=== PATIENT | female | born 1985 | race Caucasian/White ===

== ENCOUNTER 2018-11-06 13:39 | Emergency (ER) | payer BC ==
--- NOTE | 2018-11-06 13:42 | PDOC ---
Attending Attestation - Resident Resident Name: Desmond Law - ED Attending Attestation I have performed the following: I have examined & evaluated the patient, The case was reviewed & discussed with the resident, I agree w/resident's findings & plan, Exceptions are as noted - HPI HPI: 11/06/18 16:23 33yo female with lbp and intermittent R flank pain. Pt had an episode at the end of last week, which resolved on its own. Pt denies dysuria. Last night pain returned, felt like a spasm in low back - similar to her kidney stones in the past. Pt denies hematuria. Next menstrual cycle is next week. Pt states last night was assoc with nausea - no vomiting. No diarrhea. No other sick contacts. No f/c. No cp/sob. No rhinorrhea or sore throat. Pt states last kidney stone was in 2006- non surgical, passed on its own. Pt states she also started a workout program in the last week. - Physicial Exam PE: 11/06/18 17:16 Gen: aaox3, nad heent: eomi, mmm heart: +s1s2 reg lungs: cta b/l abd: soft, mild RUQ ttp, no rebound or guarding, neg murphys, neg mcburneys, no cva ttp ext: no c/c/e - Medical Decision Making 11/06/18 13:42 I, Dr. Teresa Lee, DO, attest that this document has been prepared under my direction and personally reviewed by me in its entirety. I further attest, that it accurately reflects all work, treatment, procedures and medical decision -making performed by me. 11/06/18 16:19 a/p: 33yo female with R flank pain -nausea last night, no vomiting -no cva ttp, no fever, no diarrhea, no anorexia -mild RUQ ttp, no rebound or guarding, neg murphys -will send labs, renal ultrasound/gallbladder ultrasound -pt with hx of renal stones- pain feels similar -will monitor and reassess 11/06/18 17:10 renal ultrasound and RUQ ultrasound negative fora cute findings labs show normal wbc, normal renal function, small wbc and bacteria in the urine 11/06/18 17:17 urine is not a clean sample- will repeat labs reviewed pain improved 11/06/18 18:11 repeat urine improved pt feels better resident discussed mild blood in urine and poss of small nonobstructing stone resident discussed straining urine and urology followup pt agrees with the plan and is stable for dc to home
[2018-11-06 13:54] VITALS: BP 124/74; PULSE 85; TEMP 98.3; BMI 26.4
[2018-11-06 14:00] LABS: HCG,QUALITATIVE URINE Negative
[2018-11-06 14:03] LABS: PH,URINE 5.5 (4.5-8); URINE APPEARANCE Clear; URINE BILIRUBIN Negative (NEGATIVE); URINE COLOR Yellow; URINE GLUCOSE (UA) Negative (NEGATIVE); URINE KETONE Negative (NEGATIVE); URINE LEUK ESTERASE 1+ (NEGATIVE); URINE NITRITE Negative (NEGATIVE); URINE PROTEIN Negative (NEGATIVE); URINE UROBILINOGEN 0.2 (0.2-1.0)
--- NOTE | 2018-11-06 14:35 | PDOC ---
History of Present Illness - General Chief Complaint: Pain Stated Complaint: RIGHT FLANK PAIN Time Seen by Provider: 11/06/18 13:42 History Source: Patient Exam Limitations: No Limitations - History of Present Illness Initial Comments: HPI: 33 y/o female presenting to ER complaining of right sided abdominal, right flank, and bilateral lower back pain. Mild occurrence last that resolved spontaneously. Pain returned last evening while she was laying down to sleep. Unable to identify eliciting event, but states she recently restarted gym exercise. Endorses nausea without vomiting. Able to tolerate PO well. Denies dysuria, hematuria, or vaginal discharge. Denies h/o of abdominal surgery. Last BM was yesterday morning and reportedly regular. Pt has a h/o of nephrolithiasis. Single episode approx. 8 years prior that resolved without medical intervention. Reports pain is somewhat similar but last episode did not radiate to abdomen. No history of STDs. In monogamous relationship with . One sexual partner in last 6 months. Medical Hx: - Pt denies past medical history. Denies prescription medications. Denies OCPs. Surgical Hx: - Pt denies past surgical history. Past History - Past Medical History Allergies/Adverse Reactions: Allergies Allergy/AdvReac Type Severity Reaction Status Date / Time levofloxacin [From Levaquin] Allergy Intermediate Verified 11/06/18 13:43 COUGH SYRUP Allergy Intermediate Uncoded 11/06/18 13:43 Home Medications: Ambulatory Orders Fluticasone Prop 0.05% Nasal [Flonase -] 1 - 2 spray NS DAILY 11/06/18 COPD: No Kidney Stones: Yes - Suicide/Smoking/Psychosocial Hx Smoking History: Never smoked Hx Alcohol Use: Yes (OCCASIONAL) Drug/Substance Use Hx: No Review of Systems - Review of Systems Able to Perform ROS?: Yes Comments:: In addition to that documented in the HPI above, the additional ROS was obtained : Constitutional: Denies fevers or chills Head: Denies headache ENMT: Denies sore throat CV: Denies chest pain Resp: Denies SOB GI: Denies vomiting or diarrhea : Denies painful urination, hematuria, urinary frequency, or vaginal discharge MSK: Denies recent trauma Skin: Denies new rashes Neuro: Denies new numbness or tingling or weakness Endocrine: Denies polyuria Heme: Denies bleeding or bruising *Physical Exam - Vital Signs Last Vital Signs Temp Pulse Resp BP Pulse Ox 98.3 F 85 16 124/74 100 11/06/18 13:41 11/06/18 13:41 11/06/18 13:41 11/06/18 13:41 11/06/18 13:41 - Physical Exam Comments: Constitutional: Well-developed, well-nourished female in no acute distress or obvious discomfort. Found sitting upright on edge of hospital bed. Alert and oriented x4. Answered all questions appropriately and completely. Speech was non -labored, non-pressured. Head: Normocephalic. No obvious external signs of trauma. Eyes: Sclerae white. Ears: Hearing grossly intact. Nose: No nasal discharge. Neck: Supple, trachea is midline. Cardiovascular / Chest: Regular rate and regular rhythm. No murmur, rubs, clicks, or gallops. Peripheral pulses: radial pulses full. Respiratory: Breathing unlabored. Equal chest rise and fall. Clear to auscultation bilaterally. No stridor, no wheezing, no rhonchi. Gastrointestinal: abdomen is tender in LUQ > LLQ with some referred pain from palpation in LLQ. Globally abdomen is soft and nondistended. No hepatosplenomegaly. No pulsatile masses. No overlying skin lesions or obvious signs of trauma. Neuro: Alert and oriented. Moving all four extremities spontaneously. Skin: Warm, dry, and intact. No bruising, rashes, or other lesions. : No R or L CVA tenderness. Psych: Affect: appropriate. Mood: normal. Moderate Sedation - Procedure Monitoring Vital Signs: Procedure Monitoring Vital Signs Temperature 98.3 F 11/06/18 13:41 Pulse Rate 85 11/06/18 13:41 Respiratory Rate 16 11/06/18 13:41 Blood Pressure 124/74 11/06/18 13:41 O2 Sat by Pulse Oximetry (%) 100 11/06/18 13:41 ED Treatment Course - LABORATORY CBC & Chemistry Diagram: 11/06/18 16:15 11/06/18 16:15 - ADDITIONAL ORDERS Additional order review: Laboratory Results 11/06/18 13:47 Urine Color Yellow Urine Appearance Clear Urine pH 5.5 Ur Specific [place] 1.015 Urine Protein Negative Urine Glucose (UA) Negative Urine Ketones Negative Urine Blood Trace-intact H Urine Nitrite Negative Urine Bilirubin Negative Urine Urobilinogen 0.2 Ur Leukocyte Esterase 1+ H Urine HCG, Qual Negative Medical Decision Making - Medical Decision Making *Reviewed vital signs, nursing notes, and prior visit documentation (if available). 33 y/o female complaining of right sided abdominal and flank pain, as well as bilateral lower back pain. H/o of similar symptoms with previous episode of nephrolithiasis. Also reports recent change in physical activity. Afebrile. Vitals unremarkable for hypotension or tachycardia. Physical exam as described above. Suspect possible MSK pain versus nephrolithiasis. Will obtain RUQ and renal U/S to evaluate RUQ pain. Will obtain CBC, CMP, Lipase, UPreg, UA, and urine culture. Ordered Motrin for pain relief. U/S unremarkable for cholecystitis or hydronephrosis. CBC unremarkable for anemia or leukocytosis. CMP unremarkable for electrolyte derangement. LFTs not elevated. BUN and Cr at baseline. eGFR >60. UA remarkable for small amount of 1+ blood, pyuria, 1+ leukocyte esterase, and 1 + bacteria. Urine culture pending. Suspect likely contamination. Will repeat UA. Repeat UA unremarkable for pyuria or leukocyte esterase. 1+ blood again noted. Low suspicion for cystitis or pyelonephritis. Blood is possibly secondary to nephrolithiasis or beginning of menstrual cycle. Pt reassessed. Reports no further abdominal pain. Bilateral lower back pain persists. Abdominal exam is improved from initial. No further tenderness. Continue to suspect nephrolithiasis versus MSK pain. Discussed imaging and laboratory results with pt. Answered all questions. Provided return precautions. Pt expressed verbal understanding and agreement with plan to discharge home with outpatient follow up. Also provided urology referral. Lipase pending at time of discharge. Discussed the possible delay in result. Will call pt if positive result. 11/06/18 18:52 Lipase normal. Telephone conversation with pt to inform of results. Reported the seat heater had significantly improved her back pain. *DC/Admit/Observation/Transfer Diagnosis at time of Disposition: Right flank pain, Right lateral abdominal pain - Discharge Dispostion Disposition: HOME Condition at time of disposition: Good Decision to Admit order: No - Referrals Referrals: Román Helm MD [Staff Physician] - - Patient Instructions Printed Discharge Instructions: DI for Kidney Stones Additional Instructions: You were seen today for lower back pain and right sided abdominal pain. The ultrasound showed a normal gallbladder and no fluid build up on your kidneys. Your blood work was normal. Your urine showed a small amount of blood. This could be indicative of a kidney stone or of the beginning of your menstrual cycle. You have been given a strainer. You should strain your urine over the next several days to see if you pass a kidney stone. You can take over the counter Tylenol or Advil as needed for pain. Take as directed on the package insert. Do not exceed the recommended dosage. Follow up with your primary care doctor within the next week. You will need to call to make an appointment. The number is included in this packet. A copy of todays results are attached to this packet. Take it to the appointment so your doctor can review them. You can also follow up with a urologist. I have referred you to Dr. Helm. You will need to call to make an appointment. The number is included in this packet. Go to the nearest emergency department if your condition worsens or you feel like you need additional emergency evaluation. . Print Language: SERBIAN - Post Discharge Activity Forms/Work/School Notes: Back to Work
[2018-11-06] MEDS ORDERED: IBUPROFEN 600 MG TABLET (FP) PO ONE ×2 (14:37→16:05)
[2018-11-06 16:32] LABS: BASO % 0.5 % (0-2.0); HEMOGLOBIN 13.5 GM/dl (10.7-15.3); MONO % 4.2 % (3.8-10.2)
[2018-11-06 16:42] LABS: EOS % 0.8 % (0-4.5); HEMATOCRIT 40.4 % (32.4-45.2); LYMPH % 28.9 % (8-40); MCHC 33.5 g/dl (32.0-36.0); MEAN CELL VOLUME 89.6 fl (80-96); NEUT % 65.6 % (42.8-82.8); PLATELET COUNT 281 K/MM3 (134-434); RBC 4.51 M/mm3 (3.60-5.2); RDW 12.6 % (11.6-15.6); WHITE BLOOD COUNT 8.1 K/mm3 (4.0-10.8)
[2018-11-06 16:49] LABS: ALBUMIN 4.5 g/dl (3.4-5.0); ALK PHOS 57 U/L (45-117); ANION GAP 9 MMOL/L (8-16); BILIRUBIN,TOTAL 0.9 mg/dl (0.2-1); BLOOD UREA NITROGEN 16 mg/dl (7-18); CALCIUM 9.4 mg/dl (8.5-10); CHLORIDE 103 mmol/L (98-107); CO2 24 mmol/L (21-32); CREATININE 0.8 mg/dl (0.55-1.3); GLUCOSE,RANDOM 86 mg/dl (74-106); SGOT/AST 19 U/L (15-37); SGPT/ALT 13 U/L (13-61); SODIUM 136 mmol/L (136-145); TOT PROT 7.5 g/dl (6.4-8.2)
[2018-11-06 16:57] LABS: EPI CELLS 1+ /HPF; URINE BACTERIA 1+ /hpf (NEGATIVE)
[2018-11-06 17:51] LABS: URINE APPEARANCE Clear; URINE BILIRUBIN Negative (NEGATIVE); URINE COLOR Yellow; URINE GLUCOSE (UA) Negative (NEGATIVE); URINE KETONE 1+ (NEGATIVE); URINE LEUK ESTERASE Negative (NEGATIVE); URINE NITRITE Negative (NEGATIVE); URINE PROTEIN Negative (NEGATIVE); URINE UROBILINOGEN 0.2 (0.2-1.0)
[2018-11-06 17:54] LABS: PH,URINE 5.5 (4.5-8)
[2018-11-06 18:50] LABS: LIPASE 120 U/L (73-393)
[2018-11-06 19:35] LABS: EPI CELLS FEW /HPF; URINE BACTERIA 2+ /hpf (NEGATIVE); URINE RBC 0-2 /hpf (0-3)
== END 2018-11-06 18:22 | disposition home or self-care (01) ==
LOC: FER 13:39
DX: R10.31 Right lower quadrant pain (principal)
CPT/HCPCS: 36415; 76705-TC; 76775-TC; 80053; 81003; 81015; 83690; 84703; 85025; 87086; 99282-25